=== PATIENT | female | born 1990 | race Two or more races ===

== ENCOUNTER 2017-02-22 06:55 | Inpatient (IN) | payer OTHER ==
[2017-02-22] MEDS: LACTATED RINGERS 1,000 ML IV SCH ×4 (07:15→21:31)
[2017-02-22 07:30] VITALS: BMI 36.7
[2017-02-22] MEDS ORDERED: CEFAZOLIN SODIUM 2 GRAM DUPLEX 2 G in Premix (D5W) 50 ml 1 EACH IV PRN (07:37)
[2017-02-22 07:50] LABS: HEMATOCRIT 38.1 % (37.0-47.0); MEAN CELL VOLUME 88.8 fl (81.0-99.0); MEAN CORPUSCULAR HEMOGLOBIN 30.3 pg (27.0-31.0); MEAN CORPUSCULAR HGB CONC 34.1 g/dl (33.0-37.0); RED CELL DISTRIBUTION WIDTH 12.6 % (11.5-14.5)
[2017-02-22] MEDS ORDERED: CEFAZOLIN SODIUM 2 GRAM DUPLEX 50 ML IV ONE (07:58)
[2017-02-22] MEDS ORDERED: FENTANYL 100 MCG/2 ML VIAL ONE (08:42)
[2017-02-22] MEDS ORDERED: MORPHINE SULFATE (DURAMORPH) 1 MG/ML 10ML AMP ONE (08:42)
[2017-02-22] MEDS ORDERED: FAMOTIDINE 10 MG/ML 2ML VIAL ONE (08:52)
[2017-02-22] MEDS ORDERED: CITRIC ACID/SODIUM CITRATE 15 ML UDCUP PO ONE (08:52)
[2017-02-22] MEDS ORDERED: OXYTOCIN 10 UNITS/ML VIAL ONE ×4 (09:21→09:49)
[2017-02-22] MEDS ORDERED: ONDANSETRON 4 MG/2ML 2 ML VIAL ONE (09:21)
[2017-02-22] MEDS ORDERED: PHENYLEPHRINE 10 MG/1 ML (1%) VIAL ONE (09:21)
[2017-02-22] MEDS ORDERED: DIPHENHYDRAMINE HCL 50 MG/1 ML VIAL IV PRN ×2 (09:25→10:27)
[2017-02-22] MEDS ORDERED: NALBUPHINE HCL 20 MG/ML AMP IV PRN (09:25)
[2017-02-22] MEDS ORDERED: HYDROMORPHONE HCL 2 MG/ML SYRINGE IV PRN (09:25)
[2017-02-22] MEDS ORDERED: ONDANSETRON 4 MG/2ML 2 ML VIAL IV PRN ×2 (09:25→10:27)
[2017-02-22] MEDS ORDERED: EPHEDRINE SULFATE 50 MG/ML 1ML VIAL IV PRN (09:25)
[2017-02-22] MEDS ORDERED: NALOXONE HCL 0.4 MG/ML VIAL IV PRN (09:25)
[2017-02-22] MEDS ORDERED: PROMETHAZINE HCL 25 MG/ML VIAL IM PRN (09:25)
[2017-02-22] MEDS ORDERED: HYDROMORPHONE HCL 1 MG/ML SYRINGE IV PRN (09:25)
[2017-02-22] MEDS ORDERED: DIPHENHYDRAMINE HCL 25 MG CAPSULE PO PRN (10:27)
[2017-02-22] MEDS ORDERED: LANOLIN 50 APPLIC/7G TUBE TP PRN (10:27)
--- NOTE | 2017-02-22 10:40 | PDOC37 ---
Procedure: Repeat Section Date of Procedure: 02/22/17 Start Time: 920 Preoperative Diagnosis: 1. 39 week intrauterine . 2. Repeat section 3. Thrombocytopenia Postoperative Diagnosis: Same Surgeon: Rosaura Bojorquez MD Assist: Shira Perera MD Indication for Procedure: 26 year old, at 39 weeks 0 days with history of section x 1, scheduled for elective repeat. Risks were discussed to include bleeding, infection, damage to surrounding organs, transfusion and hysterectomy. She elected to proceed. Anesthesia: Spinal with Duramorph, by Lazaro Toussaint CRNA Complications: mild uterine atony Estimated Blood Loss: 1000 mLs IV Fluids: 3000 mLs of LR Medications: 2 gm of Ancef for routine prophylaxis. 20 units of Pitocin IV, and 10 units of Pitocin IM. Urine Output: 350 mLs of clear urine Findings: Fluid clear. Normal uterus, ovaries, and tubes. Vertex, female , apgars 9/9, weight 7 lbs 9 oz. Procedure: The patient was taken to the operating room where spinal anesthesia was found to be adequate. She was then prepared and draped in the normal sterile fashion in the dorsal supine position with a leftward tilt. A timeout was performed. A Pfannensteil skin incision was then made with the scalpel and carried through to the underlying layer of fascia with the scalpel. The fascia was incised in the midline and the incision extended laterally with the Allan scissors. The superior aspect of the fascial incision was then grasped with the Radha clamps, elevated, and the underlying rectus muscles dissected off bluntly and sharply where needed. Attention was then turned to the inferior aspect of the incision which, in a similar fashion, was grasped, tented up with the Radha clamps, and the rectus muscle dissected off bluntly and sharply with Allan scissors. The rectus muscles were then in the midline, and the peritoneum was identified and entered bluntly. The peritoneal incision was then extended with good visualization of the bladder. The Feliz O retractor was then inserted and the vesicouterine peritoneum identified, grasped with pick- ups and entered sharply with the Metzenbaum scissors over a small adhesion on the uterus. A full bladder flap was not created. The lower uterine segment was incised in a transverse fashion with the scalpel. The uterine incision was then extended laterally by pulling superolaterally on both sides. Membranes were ruptured and fluid was clear. The bladder blade was removed the 's head was flexed out of OA position and delivered atraumatically. The nose and mouth were suctioned with bulb suction and the cord was clamped and cut after a 1 minute delay. The was handed off to the waiting medical staff specialist. The placenta was then delivered intact with gentle cord traction. The uterus was then exteriorized and cleared of all clots and debris. The uterine incision was repaired with 0 vicryl in a running, locked fashion. Uterine atony was noted and 10 units of IM pitocin was injected directly into the uterus with good response. A second layer of the same suture was used in an imbricating fashion to obtain excellent hemostasis. The gutters were cleared of all clots. The uterus was returned to the abdomen. The Feliz O retractor was removed. The peritoneum was closed with 2-0 Vicryl. The fascia was reapproximated with 0 Vicryl in a running fashion. The subcutaneous tissue was reapproximated with 3-0 Vicryl. The skin was closed with 4-0 Vicryl. The patient tolerated the procedure well. Sponge, lap and needle counts were correct times three. A debriefing was held at the end of the procedure with anesthesia and nursing staff. The patient was taken to the recovery room in stable condition.
[2017-02-22] MEDS: OXYCODONE/ACETAMINOPHEN 5/325 MG TABLET PO PRN (18:24)
[2017-02-22] MEDS: IBUPROFEN 800 MG TABLET PO SCH ×2 (18:24→21:01)
[2017-02-22] MEDS: DOCUSATE SODIUM 100 MG CAPSULE PO SCH (21:30)
[2017-02-23] MEDS: OXYCODONE/ACETAMINOPHEN 5/325 MG TABLET PO PRN ×5 (00:31→21:26)
[2017-02-23] MEDS: IBUPROFEN 800 MG TABLET PO SCH ×6 (00:32→23:17)
[2017-02-23] MEDS: LACTATED RINGERS 1,000 ML IV SCH ×2 (04:24→17:37)
[2017-02-23 07:11] LABS: HEMATOCRIT 33.4 % (37.0-47.0); HEMOGLOBIN 11.3 gm/l (12.0-16.0); MEAN CELL VOLUME 88.8 fl (81.0-99.0); MEAN CORPUSCULAR HEMOGLOBIN 30.1 pg (27.0-31.0); MEAN CORPUSCULAR HGB CONC 33.8 g/dl (33.0-37.0); RED CELL DISTRIBUTION WIDTH 12.8 % (11.5-14.5)
[2017-02-23] MEDS: DOCUSATE SODIUM 100 MG CAPSULE PO SCH ×2 (08:30→21:26)
[2017-02-23] MEDS ORDERED: PRENATAL VIT/FE FUMARATE/FA 1 TABLET PO SCH (09:00)
--- NOTE | 2017-02-23 11:14 | PDOC44 ---
- Subjective Day: 1 doing well. tolerating regular diet. ambulating. Breast feeding well. Pain is controlled. Min. lochia. Reports Flatus, Reports Pain Tolerable, Reports , Reports Lochia Light, Reports Tolerating Regular Diet - Objective Temp Pulse Resp BP Pulse Ox 98.4 F 73 16 100/55 98 02/23/17 08:04 02/23/17 08:04 02/23/17 08:04 02/23/17 08:04 02/22/17 12:04 Lab Results 02/23/17 06:20 WBC 10.5 RBC 3.76 L Hgb 11.3 L Hct 33.4 L Plt Count 97 L Current Medications Generic Name Dose Route Start Last Admin Trade Name Freq PRN Reason Stop Dose Admin Diphenhydramine HCl 25 - 50 mg 02/22/17 10:27 Benadryl PO Q6H PRN Itching (Mild/Moderate) Diphenhydramine HCl 25 - 50 mg 02/22/17 10:27 Benadryl IV Q6H PRN Itching (Severe) Docusate Sodium 100 mg 02/22/17 21:00 02/23/17 08:30 Colace PO 100 mg BID ILIR Administration Emollient Ointment 1 applic 02/22/17 10:27 [id number] TP PRN PRN sore nipples Lactated Ringer's 1,000 mls @ 125 mls/hr 02/22/17 10:30 02/23/17 04:24 Lactated Ringers IV Not Given .Q8H ILIR Ibuprofen 800 mg 02/22/17 10:30 02/23/17 06:22 Motrin PO 800 mg Q6H ILIR Administration Multivi/Iron Carb/Fe Sulf/FA/Prenat 1 tab 02/23/17 09:00 02/23/17 08:30 Plus PO 1 tab DAILY ILIR Administration Ondansetron HCl 4 mg 02/22/17 10:27 02/22/17 11:47 Zofran IV 4 mg Q6H PRN Administration Nausea/Vomiting Oxycodone/Acetaminophen 1 - 2 tab 02/22/17 10:27 02/23/17 04:28 Percocet 5/325 PO 1 tab Q4H PRN Administration Pain (Moderate) Sodium Chloride 10 ml 02/22/17 08:09 02/23/17 08:30 Normal Saline 10ml Flush IV 10 ml PRN PRN Administration Sodium Chloride 10 ml 02/22/17 17:00 02/23/17 00:33 Normal Saline 10ml Flush IV 10 ml Q8H ILIR Administration - Physical Exam General: Afebrile Neurological: Alert Lungs: Clear to Auscultation Bilaterally Cardiovascular: Regular Rate and Rhythm Breast: Soft Fundus: Firm, At Umbilicus Abdomen: Normal Bowel Sounds Lochia: Light Rectal Exam: Deferred Extremities: Other (nt, trace edema, nt) - Problems:Assessment/Plan (1) S/P repeat low transverse Status: AcuteAssessment/Plan: doing well. POD 1 ambulate shower breast feeding support
[2017-02-23 21:38] VITALS: BP 120/74
== END 2017-02-23 23:59 | disposition still patient (30) | DRG 765 ==
LOC: FBC 06:55 → EDSTATUS 03-01 11:28
PROVIDERS: ADMIT Family Medicine; ATTEND Family Medicine
PROC: 10D00Z1 Extraction of Products of Conception, Low, Open Approach (ICD-10-PCS; principal; 2017-02-22)
DX: O34.211 Maternal care for low transverse scar from previous cesarean delivery (principal); O99.12 Other diseases of the blood and blood-forming organs and certain disorders involving the immune mechanism complicating childbirth; D69.6 Thrombocytopenia, unspecified; Z37.0 Single live birth; Z3A.39 39 weeks gestation of pregnancy